=== PATIENT | male | born 1990 | race Caucasian/White ===

== ENCOUNTER 2024-02-19 19:53 | Emergency (ER) | payer OTHER, SELFPAY ==
[2024-02-19 19:59] VITALS: BP 135/86
[2024-02-19 23:59] VITALS: BMI 27.8
[2024-02-20 00:13] VITALS: BP 119/81
[2024-02-20 00:29] LABS: Urine Albumin Negative (Neg - Trace); Urine Bilirubin Negative (Negative); Urine Character Clear (Clear); Urine Color Yellow; Urine Glucose Negative (Negative); Urine Ketone Negative (Negative); Urine Leukocyte Negative (Negative); Urine Nitrite Negative (Negative); Urine Occult Blood Negative (Negative); Urine Urobilinogen 1+ (Neg - 1+)
[2024-02-20 00:36] LABS: ALT (SGPT) 28 U/L (0-50); AST (SGOT) 25 U/L (17-59); Albumin 4.7 g/dl (3.5-5.0); Alkaline Phosphatase 46 U/L (38-126); Blood Urea Nitrogen 15 mg/dl (9-20); Calcium 9.2 mg/dl (8.4-10.2); Carbon Dioxide 26 mmol/L (22-30); Chloride 103 mmol/L (98-107); Estimated Creatinine Clearance 117 ml/min; Glucose 96 mg/dl (70-99); Sodium 141 mmol/L (135-145); Total Bilirubin 0.5 mg/dl (0.2-1.3); eGFR > 60.00
[2024-02-20 00:38] LABS: % Basophils 0.8 % (0-2); % Eosinophils 1.1 % (0-6); % Immature Granulocytes 1.3 % (0-0.5); % Monocytes 6.6 % (1.7-9.3); % Neutrophils 54.2 % (42.2-75.2); Absolute Basophils 0.1 10^3/uL (0-0.2); Absolute Eosinophils 0.1 10^3/uL (0-0.7); Absolute Immature Granulocytes 0.1 10^3/uL (0-0.05); Absolute Lymphocytes 3.3 10^3/uL (1.2-3.4); Absolute Monocytes 0.6 10^3/uL (0.1-0.6); Hematocrit 39.6 % (39.0-52.0); Hemoglobin 14.3 g/dL (13.0-18.0); Mean Corp Hgb Conc. 36.1 g/dL (33.0-37.0); Mean Corpuscular Hgb 27.4 pg (27.0-31.0); Mean Platelet Volume 10.8 fL (7.4-10.4); Nucleated Red Blood Cells % 0 % (-); Platelet Count 221 10^3/uL (130-400); Red Blood Cell Count 5.21 10^6/uL (4.70-6.10); Red Cell Dist. Width 11.7 % (11.5-14.5); White Blood Cell Count 9.2 10^3/uL (4.8-10.8)
--- NOTE | 2024-02-20 00:59 | ED.GENMED ---
History of Present Illness
General
Chief Complaint: Back Pain
Source: patient
Exam Limitations: none
Time Seen by Provider: 02/20/24 00:37
History of Present Illness
History of Present Illness:
This is a 33 year old male that comes in with c/o back pain. States that this has been going on for 2 weeks. States that he just awoke one morning and he had pain. States that a couple of days ago it got worse. States that the pain come around to
the abd and sometimes in his testicles. State that he has difficulty getting up and he is very tense. Denies any injury. Denies any fever, chills, chest pain, SOB, abd pain, nausea, vomiting, diarrhea, headache, dizziness, urinary burning.
Past History
Past History
ED Past Medical History: Other (Kidney stones, prostatitis)
ED Past Surgical History: None
Social History
Tobacco: Smoker
Alcohol: None
Personal:
Living: with family
Employment: Employed (concrete truck driver)
Review of Systems
Review of Systems
All Other Systems: ROS reviewed and negative except as documented in HPI and ROS
Constitutional: Reports no symptoms; Denies fever or chills
EENT: Reports no symptoms
Respiratory: Reports no symptoms; Denies cough or trouble breathing
Cardiac: Reports no symptoms; Denies chest pain
ABD/GI: Reports no symptoms; Denies abdominal pain, nausea, vomiting or diarrhea
: Reports no symptoms; Denies dysuria, frequency or urgency
Musculoskeletal: Reports back pain (Low back pain)
Skin: Reports no symptoms
Neurological: Reports no symptoms; Denies dizzy or headache
Psychiatric: Reports no symptoms
Phy Exam
General Physical Exam
General Presentation: mild distress
General age: appears stated age
General Skin: warm and dry
General Habitus: normal
General Mental: alert
General Hydration: appears well hydrated
ENT Exam
ENT Exam: TM's normal, pharynx normal and neck supple
Eye Exam
Eye Exam: EOMI
Cardiovascular Exam
Cardiovascular Exam: regular rate/rhythm, no edema, no murmur and normal peripheral pulses
Pulmonary Exam
Pulmonary Exam: lungs clear, no respiratory distress, no rales, chest non tender, no crackles, no rhonchi, no wheezing and no cough
Gastrointestinal Exam
Gastrointestinal Exam: normal bowel sounds, non tender, soft, no organomegaly, no pulsatile mass and non distended
Musculoskeletal Exam
Musculoskeletal Exam: other (discomfort with straight leg raise, Turning to the left, unable to bend forward and when going up on his toes )
Skin Exam
Skin Exam: normal color, warm/dry, no rash and no petechia
Psychiatric Exam
Psychiatric Exam: normal mood/affect
Course
Orders/Labs/Results
Orders:
Orders
02/20/24 00:08
C-Reactive Protein Urgent
Comment: ADD ON
Complete Blood Count/With Diff Urgent
Comprehensive Metabolic Panel Urgent
Erythrocyte Sed Rate Urgent
Comment: ADD ON
UA Reflex to Culture [Urinalysis Reflex To Culture] Urgent
Date Specimen was Collected: 02/20/24
Time Specimen was Collected: 00:07
02/20/24 00:47
CT Lumbar Spine W/o Iv Contras Urgent
Comment:
Reason For Exam: Low back pain
Acetaminophen [Tylenol] 1,000 mg PO NOW STA
Dexamethasone Sod Phosphate [Decadron] 20 mg IV NOW STA
Ketorolac [Toradol] 30 mg IV NOW STA
02/20/24 01:02
Diazepam [Valium] 5 mg PO NOW STA
02/20/24 01:07
Add On- LAB Urgent
Tests Added?: Sed rate, CRP
Abnormal Lab Results
02/20/24
00:08
MCV 76.0 L fL
(80.0-94.0)
MPV 10.8 H fL
(7.4-10.4)
Abs Immat Gran (auto) 0.1 H 10^3/uL
(0-0.05)
Immature Gran % 1.3 H %
(0-0.5)
02/20/24 00:08
02/20/24 00:08
Labs unremarkable. Urine negative for infection. Sed rate normal at 2, CRP normal at<5.0
Vital Signs
Initial and Last Documented VS:
Initial Vital Signs
Temp Pulse Resp BP Pulse Ox
98 F 91 18 135/86 99
02/19/24 19:59 02/19/24 19:59 02/19/24 19:59 02/19/24 19:59 02/19/24 19:59
Last Documented Vital Signs
Temp Pulse Resp BP Pulse Ox
98.1 F 60 18 118/80 99
02/20/24 00:13 02/20/24 02:00 02/20/24 02:00 02/20/24 02:00 02/20/24 02:00
MDM/Problems Addressed
Differential Diagnosis Includes:
Herniated disc, Muscle spasm,
MDM/Problems Addressed:
this is a 33 year old male that comes in with c/o low back pain. States that this started 2 weeks ago and has gotten worse over the past few days. states that he can hardly get OOB and that everything is tight.
Will check labs, CT lumbar spine. Medicate for pain
Back into see patient. Patient states that he is feeling better. Reviewed labs and CT scan. Will have patient alternate with Tylenol and Ibuprofen for pain. Will also give patient a prescription for a Muscle relaxer to use at home at bedtime.
Patient to follow up with the family doctor or the occupational therapy specialist. Patient to return with any concerns .
Chronic conditions affecting care:
NA
Acute Exacerbation and/or Progression of Chronic Illness:
NA
*Radiology
Radiology exam reviewed: radiology read reviewed (CT lumbar spine night hawk- No acute fracture amount. No central canal or neuroforaminal stenosis. No acute soft tissue injury)
*Pulse Oximetry
Patient hypoxic: no
*EKG
Interpreted by ED Provider?: NA
Rate: EKG- N/A
*Oracle Manager Interpretation
Rate: Oracle Manager- N/A
*Critical Care Note
Total Time (30-74mins, 75-104mins- exclusive of procedures): Not Applicable
ED Attending Note
-
Portions of this chart may have been created with voice recognition software.� Occasional wrong word or��sound alike� substitutions may have occurred due to the inherent limitations of voice recognition software.
Discharge Plan
Departure
Patient Disposition: Home (Routine Discharge)
Date of Disposition: 02/20/24
Time of Disposition: 02:36
Patient with high blood pressure during this ER visit?: No
Condition: Good
Covid-19: Not Applicable
Discharge Problem:
Low back pain
Instructions: Low Back Pain (DC)
Prescriptions:
New
cyclobenzaprine 10 mg tablet
10 mg PO HS PRN (Reason: Muscle spasm) Qty: 7 0RF
No Action
ondansetron 4 mg tablet,disintegrating
4 mg PO Q8H PRN (Reason: nausea and vomiting) 5 Days Qty: 15 0RF
Referrals:
Akbar Meza MD [Active] - Follow up in 5-7 days
Radha Lawrence MD [Family Provider] - Call in 1-3 days for appt
Activity Restrictions/Additional Instructions:
As discussed, your blood work is normal along with your urine. You CT is negative for any acute fractures. You have been given IV steroids here that will stay in your system for a few days and decrease the inflammation. You may use Tylenol 1000mg
every 6 hours for pain and alternate with Ibuprofen 600mg every 6 hours with food for pain. So if you take the Tylenol at 9am the Ibuprofen at 12 noon, the Tylenol again at 3pm and the Ibuprofen at 6pm. You may use heat or ice to the low back which
ever make you feel better. You have had a Prescription sent to your Pharmacy for the Muscle relaxer. Follow up with the family doctor or the occupational therapy specialist for further evaluation. IF YOU HAVE ANY OTHER CONCERNS PLEASE RETURN TO THE EMERGENCY
ROOM.
Interventions
Interventions:
*Risk Screen - Suicide Last Done: 02/19/24 19:59
*General Assessment Last Done: 02/19/24 19:59
*Neglect/Abuse Screening Last Done: 02/19/24 19:59
ED- Fall Risk Assessment Last Done: 02/20/24 00:00
*ED COVID-19 Vaccine History Last Done: 02/20/24 00:00
ED-Musculoskeletal Assessment Last Done: 02/20/24 01:00
Discharge Date and Time
Print Language: [place]
[2024-02-20] MEDS: DECADRON 20 MG IV (01:11)
[2024-02-20] MEDS: TORADOL 30 MG IV (01:11)
[2024-02-20] MEDS: TYLENOL 1000 MG PO (01:11)
[2024-02-20] MEDS: VALIUM 5 MG PO (01:12)
[2024-02-20 01:25] LABS: Erythrocyte Sed Rate 2 mm/hour (0-20)
[2024-02-20 01:55] LABS: C-Reactive Protein < 5.00 mg/L (0.0-10.00)
[2024-02-20 02:00] VITALS: BP 118/80
== END 2024-02-20 03:00 | disposition home or self-care (01) ==
LOC: EMR 19:53
PROVIDERS: EMERGENCY PHYSICIAN Student in an Organized Health Care Education/Training Program; FAMILY PHYSICIAN Family Medicine
DX: M54.50 Low back pain, unspecified (principal); F17.200 Nicotine dependence, unspecified, uncomplicated; Z87.442 Personal history of urinary calculi
CPT/HCPCS: 96374; 96375; 99284; 72131; 80053; 81003; 85025; 85652; 86140